=== PATIENT | female | born 1960 | race Caucasian/White ===

== ENCOUNTER 2016-04-03 08:00 | Day surgery (SDC) | payer BC, OTHER ==
[~2016-04-03] VITALS: Ht 162.6 cm; Wt 87.5 kg
[~2016-04-03 08:00] MED LIST: ABILIFY5 MG PO; AMITRIPTYLINE H10 MG; AMITRIPTYLINE H10 MG PO; ATORVASTATIN CA40 MG PO; Atorvastatin Calcium PO; BIOTIN 5000MCG PO; CLONAZEPAM1 MG PO; ELAVIL10 MG PO; FLUOXETINE HCL20 MG PO; GABAPENTIN100 MG; GABAPENTIN100 MG PO; GEODON60 MG PO; HYDROCODON-ACE1 EAC7 PO; KLONOPIN1 MG PO; KOMBIGLYZE XR1 EAC1 PO; LIPITOR40 MG PO; LORCET PLUS 7.1 EACH PO; METHIMAZOLE5 MG PO; METOPROLOL SUCC25 MG PO; NEURONTIN100 MG PO; NICOTINE PATCH1 EAC2 TD; ONE DAILY WOME1 EACH PO; PERCOCET 10/1 TABLET; PERCOCET 10/1 TABLET PO; PRILOSEC OTC20 MG PO; PROZAC20 MG; PROZAC20 MG PO; REQUIP1 MG PO; ROPINIROLE HCL1 MG PO; STRATTERA60 MG PO; TIROSINT100 MCG PO; TRAZODONE HCL100 MG PO; VITAMIN B-121000 MCG PO
== END 2016-04-03 09:43 | disposition home or self-care (01) ==
LOC: PAIN 08:00 → SDC 08:30 → PAIN 08:30
DX: M47.816 Spondylosis without myelopathy or radiculopathy, lumbar region (principal); M54.5 Low back pain; F41.9 Anxiety disorder, unspecified; M96.1 Postlaminectomy syndrome, not elsewhere classified; M51.36 Other intervertebral disc degeneration, lumbar region; E05.00 Thyrotoxicosis with diffuse goiter without thyrotoxic crisis or storm; E06.3 Autoimmune thyroiditis; F31.9 Bipolar disorder, unspecified; Z98.84 Bariatric surgery status; E66.9 Obesity, unspecified; Z68.33 Body mass index [BMI] 33.0-33.9, adult; F43.10 Post-traumatic stress disorder, unspecified; Z87.891 Personal history of nicotine dependence; Z88.0 Allergy status to penicillin
CPT/HCPCS: J1030; J3010; S0020

== ENCOUNTER 2016-06-13 12:30 | Emergency (ER) | payer BC, OTHER ==
[~2016-06-13] VITALS: Ht 162.6 cm; Wt 92.9 kg
[2016-06-13 13:42] LABS: HEMATOCRIT 35.2 % (36.0-46.0); MCH 31.8 PG (29.0-34.0); MCHC 34.4 G/DL (30.0-36.0); MCV 92.4 FL (83-99); MEAN PLAT.VOLUME 9.8 uM^3 (9.5-12.4); PLATELET COUNT 339 K/uL (156-360); RBC DIS.WIDTH-CV 11.6 % (11.8-14.6); RBC DIS.WIDTH-SD 39.4 % (39-53); RED BLOOD COUNT 3.81 M/uL (3.80-5.20)
[2016-06-13 13:51] LABS: CHLORIDE 108 mEq/L (99-109); POTASSIUM 4.1 mEq/L (3.7-5.4); SODIUM 143 mEq/L (136-147)
[2016-06-13 13:52] LABS: GLUCOSE 80 mg/dL (70-99)
[2016-06-13 13:54] LABS: ANION GAP 9 MEQ/L (2-14)
[2016-06-13 13:56] LABS: GFR ESTIMATE (CALCULATED) > 59 mL/min/
[2016-06-13 13:57] LABS: UREA NITROGEN (BUN) 14 mg/dL (9-23)
[2016-06-13 14:02] LABS: TROP-I INTERPRETATION NEGATIVE; TROPONIN-I < 0.01 ng/mL (0.0-0.30)
[2016-06-13 14:25] VITALS: BP 114/74
== END 2016-06-13 15:12 | disposition home or self-care (01) ==
LOC: EME 12:30
DX: R06.02 Shortness of breath (principal); R07.9 Chest pain, unspecified; R11.0 Nausea; R42 Dizziness and giddiness; T43.215A Adverse effect of selective serotonin and norepinephrine reuptake inhibitors, initial encounter; E11.9 Type 2 diabetes mellitus without complications; K21.9 Gastro-esophageal reflux disease without esophagitis; Z87.891 Personal history of nicotine dependence
CPT/HCPCS: 71020; 80048; 84484; 85027; 93005; 99281; 99284; J1100